=== PATIENT | male | born 1945 | race Caucasian/White ===

== ENCOUNTER 2020-03-04 20:21 | Emergency (ER) | payer MEDICARE ==
[~2020-03-04] VITALS: Ht 175.3 cm; Wt 65.9 kg
[2020-03-04] MEDS ORDERED: GLUCAGON,HUMAN RECOMBINANT 1 MG/ML VIAL. IV ONE (20:45)
--- NOTE | 2020-03-04 21:27 | PHYS DOC ---
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 Social History Narrative: "i use it for my blood pressure" General Adult EDM: Chief Complaint: DIFFICULTY SWALLOWING HPI: HPI: Patient is a 74 year old male presenting to the ED with a chief complaint of food bolus. Patient states that he was eating pork steak this evening when a piece got stuck in his throat. This occurred around 6:30 PM. Patient states in the past whenever this happened he has been able to cough it up with this time he is not been able to cough it up. Patient states that he is not able to swallow his saliva. Review of Systems: Review of Systems: Constitutional: Denies fever or chills. [] Eyes: Denies change in visual acuity. [] HENT: Complains of difficulty in swallowing [] Respiratory: Denies cough or shortness of breath. [] Cardiovascular: Denies chest pain or edema. [] GI: Denies abdominal pain, nausea, vomiting, bloody stools or diarrhea. [] Neurologic: Denies headache, focal weakness or sensory changes. [] Heart Score: Risk Factors: Risk Factors: DM, Current or recent (<one month) smoker, HTN, HLP, family history of CAD, obesity. Risk Scores: Score 0 - 3: 2.5% MACE over next 6 weeks - Discharge Home Score 4 - 6: 20.3% MACE over next 6 weeks - Admit for Clinical Observation Score 7 - 10: 72.7% MACE over next 6 weeks - Early Invasive Strategies Current Medications: Current Medications Medications (Trade) Dose Ordered Sig/[facility] Start Time Stop Time Status Last Admin Dose Admin Glucagon (Glucagen) 1 mg 1X ONCE 03/04/20 20:45 03/04/20 20:46 DC 03/04/20 20:48 1 MG Allergies: Allergies: Allergies Coded Allergies Type Severity Reaction Last Updated Verified No Known Drug Allergies 03/04/20 No Physical Exam: PE: Constitutional: Patient in mild distress [] HENT: Normocephalic, atraumatic, not able to swallow his saliva Eyes: EOMI Neck: Normal range of motion, Supple Cardiovascular:Heart rate regular rhythm Lungs & Thorax: Bilateral rhonchi [] Abdomen: Bowel sounds normal, soft, no tenderness Extremities: No tenderness, ROM intact Neurologic: Alert and oriented X 3 Current Patient Data: Vital Signs: Vital Signs Date Time Temp Pulse Resp B/P (MAP) Pulse Ox O2 Delivery O2 Flow Rate FiO2 03/04/20 20:21 98.6 120 22 216/108 (144) 96 Room Air 98.6 EKG: EKG: [] Radiology/Procedures: Radiology/Procedures: [] Course & Med Decision Making: Course & Med Decision Making Ordered glucagon 1 mg IV. This does not r resolved symptoms. We also given patient EZ gas to drink. Patient threw up. States that the fluid boluses still in place. I discussed case with GI on-call Dr Venegas. They requested patient be given COVID testing before endoscopic procedure can be done. After a while the nurse informs me that patient coughed up the food bolus. I will call Dr. Venegas back to update them on patient's progress. Patient tolerated oral challenge in the ER without any difficulty. Patient blood pressure is elevated at 224/110. Patient states that he has not taken her blood pressure medication for the last 2 years. Patient states that he uses THC for blood pressure control. Does not want to stay in the ER anymore but wants to go home. Discussed plan of care with patient. Patient is instructed to follow up with PCP in one to 2 days. Appropriate discharge instructions given to patient to return to the ED or to seek immediate medical evaluation. Patient is instructed to return to the ED if symptoms worsen or if any concerns.. Bailey Disclaimer: Bailey Disclaimer: This electronic medical record was generated, in whole or in part, using a voice recognition dictation system. Departure Departure Impression: Primary Impression: Food impaction of esophagus Additional Impression: Hypertension Disposition: 01 HOME, SELF-CARE Condition: IMPROVED Patient Instructions: Arterial Hypertension, Esophageal Dilatation Additional Instructions: Discussed plan of care with patient. Patient is instructed to follow up with PCP in one to 2 days. Appropriate discharge instructions given to patient to return to the ED or to seek immediate medical evaluation. Patient is instructed to return to the ED if symptoms worsen or if any concerns. Justicifation of Admission Dx: Justifications for Admission: Justification of Admission Dx: HENRIETTA kAers DO Mar 04, 2020 21:27
[2020-03-04 21:43] VITALS: BP 228/100
== END 2020-03-04 21:45 | disposition home or self-care (01) ==
LOC: ER 20:21
DX: T18.128A Food in esophagus causing other injury, initial encounter (principal); I10 Essential (primary) hypertension; F17.200 Nicotine dependence, unspecified, uncomplicated; Z98.890 Other specified postprocedural states; X58.XXXA Exposure to other specified factors, initial encounter; Y93.89 Activity, other specified; Y92.89 Other specified places as the place of occurrence of the external cause; Y99.8 Other external cause status
CPT/HCPCS: 96374; 99283; J1610